=== PATIENT | female | born 1985 | race Caucasian/White ===

== ENCOUNTER 2020-06-23 10:30 | Emergency (ER) | payer OTHER ==
[~2020-06-23] VITALS: Ht 170.2 cm; Wt 117.9 kg
[2020-06-23 11:24] LABS: ABSOLUTE BASOPHILS 0.1 thou/uL (0.0-0.2); ABSOLUTE EOSINOPHILS 0.1 thou/uL (0.0-0.7); ABSOLUTE LYMPHOCYTES 1.3 thou/uL (0.8-5.3); ABSOLUTE MONOCYTES 0.5 thou/uL (0.0-1.2); ABSOLUTE NEUTROPHILS 3.1 thou/uL (1.6-8.1); BASOPHILS 1.1 %; EOSINOPHILS 2.6 %; HEMATOCRIT 39.2 % (37.0-47.0); LYMPHOCYTES 25.3 %; MCH 30.1 pg (26.0-34.0); MCHC 33.1 g/dL (28.0-37.0); MCV 91.1 fL (80.0-100.0); MONOCYTES 10.1 %; MPV 7.3 fl. (7.2-11.1); NUCLEATED RBCS 0 /100WBC; PLATELET COUNT* 253 thou/uL (150-400); POLYS 60.9 %; RBC 4.31 mil/uL (4.20-5.00); RDW-CV 13.7 % (10.5-14.5); WBC 5.1 thou/uL (4.0-11.0)
[2020-06-23 11:26] LABS: URINE BILIRUBIN NEGATIVE (Negative); URINE BLOOD NEGATIVE (Negative); URINE CLARITY CLEAR; URINE COLOR YELLOW; URINE GLUCOSE-RANDOM NEGATIVE (Negative); URINE KETONES NEGATIVE (Negative); URINE LEUKOCYTES-REFLEX NEGATIVE (Negative); URINE NITRITE-REFLEX NEGATIVE (Negative); URINE PROTEIN NEGATIVE (Negative); URINE SPECIFIC GRAVITY 1.025 (1.005-1.030); URINE UROBILINOGEN 0.2 E.U./dl (0.2-1.0)
[2020-06-23 11:33] LABS: CALCIUM 9.2 mg/dL (8.5-10.1); CREATININE 0.7 mg/dL (0.6-1.3); POTASSIUM 3.6 mmol/L (3.5-5.1)
[2020-06-23 11:34] LABS: AMP/METHAMP Negative (Negative); BARBITURATES Negative (Negative); BENZODIAZEPINES Negative (Negative); COCAINE Negative (Negative); METHADONE Negative (Negative); OPIATES Negative (Negative); PCP Negative (Negative); THC Negative (Negative)
[2020-06-23 11:41] LABS: ALBUMIN 3.7 g/dL (3.4-5.0); TOTAL BILIRUBIN 0.2 mg/dL (<0.1-1.0); TOTAL PROTEIN 7.3 g/dL (6.4-8.2)
[2020-06-23 17:17] VITALS: BP 124/68
== END 2020-06-23 17:17 | disposition home or self-care (01) ==
LOC: M.ERS 10:30
PROVIDERS: Physician Assistant
DX: R47.1 Dysarthria and anarthria (principal); Z88.1 Allergy status to other antibiotic agents; Z98.51 Tubal ligation status; Z90.49 Acquired absence of other specified parts of digestive tract